=== PATIENT | male | born 2005 | race Asian ===

== ENCOUNTER 2025-01-18 22:32 | Emergency (ER) | payer SELFPAY ==
[~2025-01-18] VITALS: Ht 165.1 cm; Wt 143.0 kg
[2025-01-18 22:37] VITALS: O2SAT 98
[2025-01-18 23:34] VITALS: BP 104/41; PULSE 88; RESP 16; TEMP 37.1; O2SAT 96
[2025-01-18] MEDS: ACETAMINOPHEN 325MG TABLET PO ONE (23:34)
[2025-01-19] MEDS ORDERED: BENZ100C86 MT (00:36)
[2025-01-19] MEDS ORDERED: DOXY100C5 MT (00:46)
== END 2025-01-19 01:00 | disposition home or self-care (01) ==
LOC: ER 22:32
DX: J06.9 Acute upper respiratory infection, unspecified (principal); Z79.899 Other long term (current) drug therapy; Z88.0 Allergy status to penicillin
CPT/HCPCS: 71045; 99283